=== PATIENT | female | born 2000 | race Two or more races ===

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

== ENCOUNTER 2022-11-09 10:56 | Emergency (ER) | payer OTHER ==
[~2022-11-09] VITALS: Ht 162.6 cm; Wt 52.2 kg
--- NOTE | 2022-11-09 11:50 | NUR ---
d/c'eliazar pt. directly.
== END 2022-11-09 12:00 | disposition home or self-care (01) ==
LOC: ER 10:56
DX: U07.1 COVID-19 (principal)
CPT/HCPCS: A4663